=== PATIENT | male | born 1980 | race Caucasian/White ===

== ENCOUNTER 2016-09-22 12:07 | Emergency (ER) | payer SELFPAY ==
[~2016-09-22 12:07] MED LIST: CLINDAMYCIN300 MG PO; ULTRAM50 MG PO
[2016-09-22] MEDS ORDERED: DELSYM30 MG/5 M1 PO (14:59)
[2016-09-22] MEDS ORDERED: NEB INH (14:59)
[2016-09-22] MEDS ORDERED: ZITHROMAX Z PA250 MG PO (14:59)
[2016-09-22] MEDS ORDERED: ALBUTEROL2.5 MG/3 M IH (14:59)
[2016-09-22 15:10] VITALS: BP 124/62
== END 2016-09-22 15:09 | disposition home or self-care (01) ==
LOC: ED 12:07
DX: J40 Bronchitis, not specified as acute or chronic (principal); J06.9 Acute upper respiratory infection, unspecified; F17.210 Nicotine dependence, cigarettes, uncomplicated